=== PATIENT | female | born 1990 | race Caucasian/White ===

== ENCOUNTER 2016-12-10 17:09 | Emergency (ER) | payer OTHER ==
--- NOTE | 2016-12-10 17:56 | DIAGNOSTIC IMAGING REPORT ---
PROCEDURE: XR WRIST MIN 3 VIEWS - LEFT INDICATION: TRAUMA/INJURY TECHNIQUE: Five views of the left wrist. COMPARISON: None. FINDINGS: Normal mineralization. No fractures. Normal osseous alignment. No suspicious soft-tissue calcification or radiodense foreign bodies. IMPRESSION: 1. Intact left wrist.
--- NOTE | 2016-12-10 18:04 | ED ORDER SUMMARY ---
..... Patient: CECILIA GUILLERMO OrderSheet [facility] VisitID: [id number] [address] [place] [address] 26y, F Registration Date/Time: 12/10/2016 ORDER SHEET Weight: 544.3 kg (stated) Allergies: No Known Drug Allergy GENERAL ORDERS: Wrist 3 or 4V Left Urgent (17:21 12/10/2016 DDean R.N. per protocol) (Ack 17:23 PWeiler ER Tech1) (17:51 DDean R.N.) POC - Urine hCG (17:23 12/10/2016 DDean R.N. per protocol) (17:32 DDean R.N.) Splint (UE) (Left) (WRIST VELCRO) (17:49 12/10/2016 Rajendra P.A.-C) (17:59 Ani) MEDICATION ORDERS: IV FLUIDS: ORDER SHEET NOTES: [Electronically signed by Odette Brian R.N. (18:14 12/10/2016)] [Electronically signed by Ekta Weller P.AKris-C (18:35 12/10/2016)] [Electronically locked/signed by Odette Brian R.N. (18:14 12/10/2016)]
--- NOTE | 2016-12-10 18:04 | ED ORDER SUMMARY ---
..... Patient: CECILIA GUILLERMO OrderSheet [facility] VisitID: [id number] [address] [place] [address] 26y, F Registration Date/Time: 12/10/2016 ORDER SHEET Weight: 544.3 kg (stated) Allergies: No Known Drug Allergy GENERAL ORDERS: Wrist 3 or 4V Left Urgent (17:21 12/10/2016 DDean R.N. per protocol) (Ack 17:23 PWeiler ER Tech1) (17:51 DDean R.N.) POC - Urine hCG (17:23 12/10/2016 DDean R.N. per protocol) (17:32 DDean R.N.) Splint (UE) (Left) (WRIST VELCRO) (17:49 12/10/2016 Rajendra P.A.-C) (17:59 Ani) MEDICATION ORDERS: IV FLUIDS: ORDER SHEET NOTES: [Electronically signed by Odette Brian R.N. (18:14 12/10/2016)] [Electronically signed by Ekta Weller P.AKris-C (18:35 12/10/2016)] [Electronically locked/signed by Odette Brian R.N. (18:14 12/10/2016)]
--- NOTE | 2016-12-10 18:04 | ED NURSING NOTES ---
Clinical Report - Nurses [facility] [address] [place] [address] 12/10/2016 17:12 Patient: CECILIA GUILLERMO TRIAGE Triage time 1725. Acuity: LEVEL 4. Chief Complaint: INJURY TO LEFT WRIST. --17:25 Odette Brian R.N. 17:21 12/10/16. BP: 126/68. HR: 92. RR: 18. O2 saturation: 100%. Temp: 98.6 F. Pain level now: 03/04. --17:25 Odette Brian R.N. Weight: 544.3 kg stated. --17:23 Odette Brian R.N.. Height/Length: 65 inches Per Patient. BMI: 199.9. --18:13 Odette Brian R.N. Medications None. --18:13 Odette Brian R.N. Allergies No Known Drug Allergy. --18:13 Odette Brian R.N. History Arrived by private vehicle. Historian: patient. Accompanied by spouse. No primary care physician. This occurred (1400). Mechanism of injury: a blow (hit on edge of counter at work c/o wrist pain at base of thumb). PAST MEDICAL HX: Tetanus status: up-to-date. Last normal menstrual period- 2 weeks. SURGERY HX: No history of previous surgery. SOCIAL HX: Light tobacco smoker (cigarette)- less than 1/2 a pack per day. No alcohol use or drug use. --17:25 Odette Brian R.N. PROBLEMS: Pharyngitis. Torticollis. Anxiety Reaction. Sinusitis. Bronchitis. Asthma. --17:24 Odette Brian R.N. ADDITIONAL SURGERIES: no known surgeries. Interventions ID band on patient. To treatment room. --17:25 Odette Brian R.N. PHYSICAL ASSESSMENT 17:25. Ambulatory to room. GENERAL / NEURO / PSYCH: Oriented X 4. Alert. Appears in no acute distress. EXTREMITIES: Limited ROM present. Capillary refill is less than 2 seconds in the extremities. Extremity pulses are within normal limits. Neuro-vascular status intact to the extremity. Left wrist: tenderness and swelling. No limitation in ROM. SKIN: Skin is warm and dry. --17:32 Odette Brian R.N. NURSING PROGRESS NOTES 17:25. Cold pack applied. Reassurance given. Patient identifiers checked. Call light placed in reach. Side rails up. Bed placed in lowest position. Patient ready for evaluation- chart flagged. --17:29 Odette Brian R.N. 17:30. Patient ID band checked for patient name and birthdate. Clean catch urine collected with return of yellow-colored clear urine. (POC preg- Neg ERPA notified). --17:31 Odette Brian R.N. 17:31 12/10/16. ( Port x-ray here to do wrist films). --17:31 Odette Brian R.N. 17:59 12/10/16. Velcro upper extremity splint applied to left wrist by tech. Distal pulses intact, sensation intact and motor within normal limits. --18:00 Tres [place]idan. DISPOSITION / DISCHARGE 18:10. Condition at departure: stable. No learning barriers present. Discharge instructions provided and reviewed with the patient and spouse. Reviewed medication(s) (tylenol, motrin). Treatments reviewed (ice, elevate , splint). Patient and spouse verbalized understanding. Written instructions provided in Maltese. The patient was discharged home and accompanied by spouse. She left the Emergency Department ambulatory and via private vehicle. Spouse driving. --18:12 Odette Brian R.N. 18:10 12/10/16. BP: deferred. HR: deferred. RR: deferred. O2 saturation: deferred. Temp: deferred. --18:12 Odette Brian R.N. Locked/Released at 12/10/2016 18:14 by Odette Brian R.N.
--- NOTE | 2016-12-10 18:04 | ED CLINICAL REPORT ---
Clinical Report - Physicians/Mid Levels [facility] [address] [place] [address] 12/10/2016 17:12 [id number] Time Seen: 17:38 Dec 10 2016. Arrived- By private vehicle. Historian- patient. HISTORY OF PRESENT ILLNESS Chief Complaint: hand vs cabinet. Location of injuries- ([place] wrist). The injury occurred just prior to arrival. Occurred at work. The patient complains of mild pain. No blow to the head or neck pain. (Blow to wrist at work from a hard object/ stand. No prior injury. RHD.). REVIEW OF SYSTEMS No dizziness or hearing loss. All systems otherwise negative, except as recorded above. SOCIAL HISTORY Smoker- current status unknown. No alcohol use. ADDITIONAL NOTES The nursing notes have been reviewed. PHYSICAL EXAM Vital Signs: 12/10/2016 17:21 BP: 126/68. HR: 92. RR: 18. O2 saturation: 100%. Temp: 98.6 F. Pain level now: 7/10. Appearance: Alert. No acute distress. No backboard or C-collar. Head: No swelling of head. ENT: No dental injury. Neck: Painless ROM. Non-tender. No vertebral tenderness. Posterior neck: No tenderness. CVS: Heart sounds normal. Pulses normal. Respiratory: Breath sounds normal. Chest nontender. No chest wall injury. Abdomen: No visible injury. Soft. No rebound tenderness. Extremities: Normal inspection. Left elbow. No tenderness or laceration. Left forearm. No tenderness or swelling. Left wrist: mild tenderness. (pt distal radial aspect of metacarpals, full rom at thumb). Neuro: [place] Coma Scale: 15- eyes open spontaneously (4); best verbal response- oriented x 3 (5); best motor response- obeys commands (6). Oriented X 3. No motor deficit. LABS, X-RAYS, AND EKG Lt Wrist X-ray: (IMPRESSION: 1. Intact left wrist. Electronically Final signed by:Saranya Henry MD 12/10/2016 5:56:50 PM). PROGRESS AND PROCEDURES PROCEDURES (Leftwrist Velcro splint.). Course of Care: full distal range of motion. Good distal sensation. No signs of infectious process. No laceration. Patient very stable. No snuffbox tenderness. Patient did not fall on outstretched wrist, hand. Patient is stable. Patient/family counseled. Disposition: Discharged. CLINICAL IMPRESSION Contusion to the left wrist. INSTRUCTIONS Apply ice. Elevate affected areas above chest level. Return to work (12/11 Light duty, limited lifting < 5 lbs with LEFT HAND x 5 days). (IF pain persists > 10 days follow up with PRIMARY CARE DR). OTC Medications: Take OTC medications according to label instructions. Available over the counter. Acetaminophen (available over the counter): take according to label instructions. Motrin (available over the counter): take according to label instructions. Follow-up: Follow up with your doctor in ten days if not well. Understanding of the discharge instructions verbalized by patient. (Electronically signed by Ekta Weller P.A.-C 12/10/2016 18:35)
--- NOTE | 2016-12-10 18:04 | ED CLINICAL REPORT ---
Clinical Report - Physicians/Mid Levels [facility] [address] [place] [address] 12/10/2016 17:12 [id number] Time Seen: 17:38 Dec 10 2016. Arrived- By private vehicle. Historian- patient. HISTORY OF PRESENT ILLNESS Chief Complaint: hand vs cabinet. Location of injuries- ([place]efet wrist). The injury occurred just prior to arrival. Occurred at work. The patient complains of mild pain. No blow to the head or neck pain. (Blow to wrist at work from a hard object/ stand. No prior injury. RHD.). REVIEW OF SYSTEMS No dizziness or hearing loss. All systems otherwise negative, except as recorded above. SOCIAL HISTORY Smoker- current status unknown. No alcohol use. ADDITIONAL NOTES The nursing notes have been reviewed. PHYSICAL EXAM Vital Signs: 12/10/2016 17:21 BP: 126/68. HR: 92. RR: 18. O2 saturation: 100%. Temp: 98.6 F. Pain level now: 7/10. Appearance: Alert. No acute distress. No backboard or C-collar. Head: No swelling of head. ENT: No dental injury. Neck: Painless ROM. Non-tender. No vertebral tenderness. Posterior neck: No tenderness. CVS: Heart sounds normal. Pulses normal. Respiratory: Breath sounds normal. Chest nontender. No chest wall injury. Abdomen: No visible injury. Soft. No rebound tenderness. Extremities: Normal inspection. Left elbow. No tenderness or laceration. Left forearm. No tenderness or swelling. Left wrist: mild tenderness. (pt distal radial aspect of metacarpals, full rom at thumb). Neuro: [place] Coma Scale: 15- eyes open spontaneously (4); best verbal response- oriented x 3 (5); best motor response- obeys commands (6). Oriented X 3. No motor deficit. LABS, X-RAYS, AND EKG Lt Wrist X-ray: (IMPRESSION: 1. Intact left wrist. Electronically Final signed by:Saranya Henry MD 12/10/2016 5:56:50 PM). PROGRESS AND PROCEDURES PROCEDURES (Leftwrist Velcro splint.). Course of Care: full distal range of motion. Good distal sensation. No signs of infectious process. No laceration. Patient very stable. No snuffbox tenderness. Patient did not fall on outstretched wrist, hand. Patient is stable. Patient/family counseled. Disposition: Discharged. CLINICAL IMPRESSION Contusion to the left wrist. INSTRUCTIONS Apply ice. Elevate affected areas above chest level. Return to work (12/11 Light duty, limited lifting < 5 lbs with LEFT HAND x 5 days). (IF pain persists > 10 days follow up with PRIMARY CARE DR). OTC Medications: Take OTC medications according to label instructions. Available over the counter. Acetaminophen (available over the counter): take according to label instructions. Motrin (available over the counter): take according to label instructions. Follow-up: Follow up with your doctor in ten days if not well. Understanding of the discharge instructions verbalized by patient. (Electronically signed by Ekta Weller P.A.-C 12/10/2016 18:35)
--- NOTE | 2016-12-10 18:35 | ED MAR SUMMARY ---
..... Medication Administration Record [facility] [address] [place], [place] [id number] Patient: CECILIA GUILLERMO Visit ID: [id number] 26y, F Weight: 544.3 kg Height/Length: 65 in BMI: 199.9 ALLERGIES: No Known Drug Allergy
--- NOTE | 2016-12-10 18:35 | ED MAR SUMMARY ---
..... Medication Administration Record [facility] [address] [place], [place] [id number] Patient: CECILIA GUILLERMO Visit ID: [id number] 26y, F Weight: 544.3 kg Height/Length: 65 in BMI: 199.9 ALLERGIES: No Known Drug Allergy
--- NOTE | 2016-12-10 18:35 | ED MED RECONCILIATION SUMMARY ---
Patient: CECILIA GUILLERMO Medication Reconciliation Report [facility] VisitID: [id number] [place] [address] 26y, F Registration Date/Time: 12/10/2016 Weight: 544.3 kg Height/Length: 65 in. BMI: 199.9 ALLERGIES: No Known Drug Allergy The patient's Home Medications are listed below: NONE. The source(s) of the original Home Medication information: Not obtained. The following Medications were given to the patient in the Emergency Department: None. The following Medications were prescribed to the patient: Take OTC medications according to label instructions. Available over the counter. -- Ekta Weller, P.A.-C Acetaminophen (available over the counter): take according to label instructions. -- Ekta Weller, P.A.-C Motrin (available over the counter): take according to label instructions. -- Ekta Weller, P.A.-C
--- NOTE | 2016-12-10 18:35 | ED MED RECONCILIATION SUMMARY ---
Patient: CECILIA GUILLERMO Medication Reconciliation Report [facility] VisitID: [id number] [place] [address] 26y, F Registration Date/Time: 12/10/2016 Weight: 544.3 kg Height/Length: 65 in. BMI: 199.9 ALLERGIES: No Known Drug Allergy The patient's Home Medications are listed below: NONE. The source(s) of the original Home Medication information: Not obtained. The following Medications were given to the patient in the Emergency Department: None. The following Medications were prescribed to the patient: Take OTC medications according to label instructions. Available over the counter. -- Ekta Weller, P.A.-C Acetaminophen (available over the counter): take according to label instructions. -- Ekta Weller, P.A.-C Motrin (available over the counter): take according to label instructions. -- Ekta Weller, P.A.-C
--- NOTE | 2016-12-10 18:35 | ED DISCHARGE INSTRUCTIONS ---
Patient: CECILIA GUILLERMO General Instructions [facility] VisitID: [id number] [place] [address] 26y, F Registration Date/Time: 12/10/2016 Contusion to the left wrist. INSTRUCTIONS Apply ice. Elevate affected areas above chest level. Return to work (12/11 Light duty, limited lifting < 5 lbs with LEFT HAND x 5 days). (IF pain persists > 10 days follow up with PRIMARY CARE DR). OTC Medications: Take OTC medications according to label instructions. Available over the counter. Acetaminophen (available over the counter): take according to label instructions. Motrin (available over the counter): take according to label instructions. Follow-up: Follow up with your doctor in ten days if not well. Understanding of the discharge instructions verbalized by patient. ADDITIONAL INFORMATION Contusion: Hand You have a CONTUSION of your hand. This causes local pain, swelling and sometimes bruising. There are no broken bones. This injury takes from a few days to a few weeks to heal. Home Care: 1) Keep your arm elevated to reduce pain and swelling. This is very important during the first 48 hours. 2) Apply an ice pack (ice cubes in a plastic bag, wrapped in a towel) over the injured area for 20 minutes every 1-2 hours the first day. You should continue with ice packs 3-4 times a day for the next two days. Continue the use of ice packs for relief of pain and swelling as needed. 3) You may use acetaminophen (Tylenol) or ibuprofen (Motrin, Advil) to control pain, unless another pain medicine was prescribed. [ NOTE : If you have chronic liver or kidney disease or ever had a stomach ulcer or GI bleeding, talk with your doctor before using these medicines.] Follow Up with your doctor or this facility if you are not starting to improve within the next THREE days. [NOTE: If X-rays were taken, they will be reviewed by a radiologist. You will be notified of any new findings that may affect your care.] Get Prompt Medical Attention if any of the following occur: -- Pain or swelling increases -- Redness, warmth or drainage -- Hand or fingers becomes cold, blue, numb or tingly You have been given the following additional information: Contusion, Hand Return to work (12/11 Light duty, limited lifting < 5 lbs with LEFT HAND x 5 days). (Electronically signed by Ekta Weller P.A.-C 12/10/2016 18:35)
== END 2016-12-10 18:10 | disposition home or self-care (01) ==
LOC: ED SRH 17:09
DX: S60.212A Contusion of left wrist, initial encounter (principal); W22.09XA Striking against other stationary object, initial encounter; Y93.9 Activity, unspecified; Y92.9 Unspecified place or not applicable; Y99.0 Civilian activity done for income or pay; F17.210 Nicotine dependence, cigarettes, uncomplicated; J45.909 Unspecified asthma, uncomplicated

== ENCOUNTER 2016-12-12 17:27 | Emergency (ER) | payer OTHER ==
--- NOTE | 2016-12-12 17:38 | ED NURSING NOTES ---
Clinical Report - Nurses [facility] [address] [place] [address] 12/12/2016 17:28 Patient: CECILIA GUILLERMO TRIAGE Triage time 17:32. Acuity: LEVEL 5. Chief Complaint: Location of symptoms- left hand. 17:37 12/12/16. 17:37 12/12/16. Alert. No acute distress. ( Pt states she has left hand pain. Pt states she has had numbness/tingling in her left hand after her injury two days ago.). KIRSTEN COMA SCORE: [place] Coma Scale: 15- eyes open spontaneously (4); best verbal response- oriented x 4 (5); best motor response- obeys commands (6). --17:37 Davian Jefferson R.N. 17:32 12/12/16. BP: 120/73. HR: 77. RR: 15. O2 saturation: 100% on room air. Temp: 98.7 F (oral). Pain level now: 02/02. --17:37 Davian Jefferson R.N. Weight: 71.2 kg stated. Height/Length: 67 inches Per Patient. BMI: 24.6. --17:37 Davian Jefferson R.N. Medications None. --17:38 Davian Jefferson R.N. Medication/allergy information source: the patient. --17:37 Davian Jefferson R.N. Allergies No Known Drug Allergy. --17:38 Davian Jefferson R.N. History Arrived by private vehicle. Historian: patient. Accompanied by family. Primary physician (DOCTOR, PT STATES NO). 17:37 12/12/16. Injury occurred. It is described as radiating to the left upper extremity, forearm and hand. 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 PAST MEDICAL HX: Tetanus status: up-to-date. Immunizations: up-to-date. SOCIAL HX: Never smoker. FALL RISK ASSESSMENT: Fall risk assessment completed. No fall risk identified. NUTRITIONAL RISK ASSESSMENT: The nutritional risk assessment revealed no deficiencies. FUNCTIONAL ASSESSMENT: Functional assessment: no impairments noted. LEARNING NEEDS ASSESSMENT: The learning needs assessment revealed no barriers. SKIN INTEGRITY ASSESSMENT: Skin integrity risk assessment completed. No skin integrity risk identified. --17:37 Davian Jefferson R.N. PAST MEDICAL HX: Last normal menstrual period- 2 weeks ago. SOCIAL HX: Current every day light tobacco smoker- less than 1/2 a pack per day. No alcohol use or drug use. FALL RISK ASSESSMENT: Fall risk assessment completed. No fall risk identified. NUTRITIONAL RISK ASSESSMENT: The nutritional risk assessment revealed no deficiencies. FUNCTIONAL ASSESSMENT: Functional assessment: no impairments noted. LEARNING NEEDS ASSESSMENT: The learning needs assessment revealed no barriers. SKIN INTEGRITY ASSESSMENT: Skin integrity risk assessment completed. No skin integrity risk identified. --17:38 Davian Jefferson R.N. PROBLEMS: Pharyngitis. Viral Disease. Torticollis. Contusion. Anxiety Reaction. Sinusitis. Bronchitis. Upper Extremity Fracture. Tetanus Status. Immunizations. LNMP - Last Normal Menstrual Period. Fall. Asthma. --17:38 Davian Jefferson R.N. ADDITIONAL SURGERIES: no known surgeries. Assessment 17:37 12/12/16. --17:37 Davian Jefferson R.N. Interventions 17:37 12/12/16. 17:37 12/12/16. ID and allergy band on patient. To treatment room. --17:37 Davian Jefferson R.N. PHYSICAL ASSESSMENT 17:38 12/12/16. GENERAL / NEURO / PSYCH: Oriented X 4. Alert. Appears in no acute distress. EXTREMITIES: Extremities exhibit normal ROM. Neuro-vascular status intact to the extremity. No upper extremity edema. Skin is non-tender on the extremities. Left wrist: tenderness. Left hand: tenderness. SKIN: Skin is warm and dry. --17:38 Davian Jefferson R.N. NURSING PROGRESS NOTES 17:38 12/12/16. The plan of care for this patient has been created. Extremity elevated. Neuro-vascular extremity check. Reassurance given. Two patient identifiers checked. Call light placed in reach. Side rails up x 2. Bed placed in lowest position. Brakes of bed on. --17:38 Davian Jefferson R.N. 17:38 12/12/16. Patient ready for evaluation- chart flagged and notification provided. --17:39 Davian Jefferson R.N. DISPOSITION / DISCHARGE 17:43 12/12/16. The goals identified in the patient's plan of care were met. No learning barriers present. Discharge instructions provided and reviewed with the patient. Reviewed warnings. Reviewed medication(s). Treatments reviewed. Reviewed referral to an orthopedic surgeon. Patient verbalized understanding. Written instructions provided in Faroese. The patient was discharged by the physician assistant research scientist. She was discharged home and accompanied by family. She left the Emergency Department ambulatory and via private vehicle. Family member driving. FALL RISK ASSESSMENT: Fall risk assessment completed. No fall risk identified. --17:43 Davian Jefferson R.N. 17:41 12/12/16. BP: unable to obtain. HR: unable to obtain. RR: unable to obtain. O2 saturation: unable to obtain. Temp: unable to obtain. Additional comments: Refused vitals on DC. --17:43 Davian Jefferson R.N. 17:43 12/12/16. Departure time: 17:43. --17:43 Davian Jefferson R.N. Locked/Released at 12/12/2016 17:53 by Davian Jefferson R.N.
--- NOTE | 2016-12-12 17:38 | ED NURSING NOTES ---
Clinical Report - Nurses [facility] [address] [place] [address] 12/12/2016 17:28 Patient: CECILIA GUILLERMO TRIAGE Triage time 17:32. Acuity: LEVEL 5. Chief Complaint: Location of symptoms- left hand. 17:37 12/12/16. 17:37 12/12/16. Alert. No acute distress. ( Pt states she has left hand pain. Pt states she has had numbness/tingling in her left hand after her injury two days ago.). KIRSTEN COMA SCORE: [place] Coma Scale: 15- eyes open spontaneously (4); best verbal response- oriented x 4 (5); best motor response- obeys commands (6). --17:37 Davian Jefferson R.N. 17:32 12/12/16. BP: 120/73. HR: 77. RR: 15. O2 saturation: 100% on room air. Temp: 98.7 F (oral). Pain level now: 02/02. --17:37 Davian Jefferson R.N. Weight: 71.2 kg stated. Height/Length: 67 inches Per Patient. BMI: 24.6. --17:37 Davian Jefferson R.N. Medications None. --17:38 Davian Jefferson R.N. Medication/allergy information source: the patient. --17:37 Davian Jefferson R.N. Allergies No Known Drug Allergy. --17:38 Davian Jefferson R.N. History Arrived by private vehicle. Historian: patient. Accompanied by family. Primary physician (DOCTOR, PT STATES NO). 17:37 12/12/16. Injury occurred. It is described as radiating to the left upper extremity, forearm and hand. 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 PAST MEDICAL HX: Tetanus status: up-to-date. Immunizations: up-to-date. SOCIAL HX: Never smoker. FALL RISK ASSESSMENT: Fall risk assessment completed. No fall risk identified. NUTRITIONAL RISK ASSESSMENT: The nutritional risk assessment revealed no deficiencies. FUNCTIONAL ASSESSMENT: Functional assessment: no impairments noted. LEARNING NEEDS ASSESSMENT: The learning needs assessment revealed no barriers. SKIN INTEGRITY ASSESSMENT: Skin integrity risk assessment completed. No skin integrity risk identified. --17:37 Davian Jefferson R.N. PAST MEDICAL HX: Last normal menstrual period- 2 weeks ago. SOCIAL HX: Current every day light tobacco smoker- less than 1/2 a pack per day. No alcohol use or drug use. FALL RISK ASSESSMENT: Fall risk assessment completed. No fall risk identified. NUTRITIONAL RISK ASSESSMENT: The nutritional risk assessment revealed no deficiencies. FUNCTIONAL ASSESSMENT: Functional assessment: no impairments noted. LEARNING NEEDS ASSESSMENT: The learning needs assessment revealed no barriers. SKIN INTEGRITY ASSESSMENT: Skin integrity risk assessment completed. No skin integrity risk identified. --17:38 Davian Jefferson R.N. PROBLEMS: Pharyngitis. Viral Disease. Torticollis. Contusion. Anxiety Reaction. Sinusitis. Bronchitis. Upper Extremity Fracture. Tetanus Status. Immunizations. LNMP - Last Normal Menstrual Period. Fall. Asthma. --17:38 Davian Jefferson R.N. ADDITIONAL SURGERIES: no known surgeries. Assessment 17:37 12/12/16. --17:37 Davian Jefferson R.N. Interventions 17:37 12/12/16. 17:37 12/12/16. ID and allergy band on patient. To treatment room. --17:37 Davian Jefferson R.N. PHYSICAL ASSESSMENT 17:38 12/12/16. GENERAL / NEURO / PSYCH: Oriented X 4. Alert. Appears in no acute distress. EXTREMITIES: Extremities exhibit normal ROM. Neuro-vascular status intact to the extremity. No upper extremity edema. Skin is non-tender on the extremities. Left wrist: tenderness. Left hand: tenderness. SKIN: Skin is warm and dry. --17:38 Davian Jefferson R.N. NURSING PROGRESS NOTES 17:38 12/12/16. The plan of care for this patient has been created. Extremity elevated. Neuro-vascular extremity check. Reassurance given. Two patient identifiers checked. Call light placed in reach. Side rails up x 2. Bed placed in lowest position. Brakes of bed on. --17:38 Davian Jefferson R.N. 17:38 12/12/16. Patient ready for evaluation- chart flagged and notification provided. --17:39 Davian Jefferson R.N. DISPOSITION / DISCHARGE 17:43 12/12/16. The goals identified in the patient's plan of care were met. No learning barriers present. Discharge instructions provided and reviewed with the patient. Reviewed warnings. Reviewed medication(s). Treatments reviewed. Reviewed referral to an orthopedic surgeon. Patient verbalized understanding. Written instructions provided in Kyrgyz. The patient was discharged by the physician state tested nursing assistant. She was discharged home and accompanied by family. She left the Emergency Department ambulatory and via private vehicle. Family member driving. FALL RISK ASSESSMENT: Fall risk assessment completed. No fall risk identified. --17:43 Davian Jefferson R.N. 17:41 12/12/16. BP: unable to obtain. HR: unable to obtain. RR: unable to obtain. O2 saturation: unable to obtain. Temp: unable to obtain. Additional comments: Refused vitals on DC. --17:43 Davian Jefferson R.N. 17:43 12/12/16. Departure time: 17:43. --17:43 Davian Jfeferson R.N. Locked/Released at 12/12/2016 17:53 by Davian Jefferson R.N.
--- NOTE | 2016-12-12 17:38 | ED CLINICAL REPORT ---
Clinical Report - Physicians/Mid Levels [facility] [address] [place] [address] 12/12/2016 17:28 [id number] Time Seen: 17:33 Dec 12 2016. Arrived- By private vehicle. HISTORY OF PRESENT ILLNESS Chief Complaint: Injury to left wrist. 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 The patient sustained a direct blow and crush injury. ( Reports paresthesias to hand/ thumb worse with movement/ repetitive movement especially.). REVIEW OF SYSTEMS No tingling or skin laceration. All systems otherwise negative, except as recorded above. PAST HISTORY The patient's dominant hand is the right. She has not had a prior injury to the same area. SOCIAL HISTORY Never smoker. No alcohol use or drug use. PHYSICAL EXAM Appearance: Alert. No acute distress. Head: Head atraumatic. CVS: Normal heart rate and rhythm. Heart sounds normal. Respiratory: No respiratory distress. Breath sounds normal. No chest wall injury or accessory muscle use. Abdomen: No visible injury. Soft. Extremities: No upper extremity soft tissue tenderness. Left forearm. No tenderness or swelling. Left wrist. (left wrist pain tenderness, at radial aspect ,). No tenderness, swelling, ecchymosis or puncture wound. Left hand. (good sensation, full rom.) No tenderness or laceration. Neuro, Vascular and Tendons: Vascular status intact. Capillary refill not prolonged. Motor intact. No functional tendon deficit. Neuro: Oriented X 3. No motor deficit. No sensory deficit. PROGRESS AND PROCEDURES Course of Care: No secondary signs of infection. NO lac. Mild resolving ecchymosis. Full rom. Stable. Paresthesias from crush injury from a table like object. History is likely of paresthesias due to nerve contusion rather than entrapment, as it was a direct trauma on dorsal surface. Pt urged to limit movement if she has paresthesias, and if sx persist f/u with hand surgeon. Patient is stable. Patient/family counseled. Disposition: Discharged. CLINICAL IMPRESSION Paresthesia (L WRIST). Contusion to the left wrist. (Hand/ WRIST). INSTRUCTIONS Elevate affected areas above chest level. Limit use of your hand (R. Hand (limit lifting < 3 lbs ) x 6 days). (Hand SURGEON: Dr. Parker Salvador as needed [address] [place] [address] [phone]). OTC Medications: Take OTC medications according to label instructions. Available over the counter. Motrin (available over the counter): take according to label instructions. [facility]up with: [facility], , [address] [facility] [address] (Electronically signed by Ekta Weller P.A.-C 12/12/2016 17:48)
--- NOTE | 2016-12-12 17:38 | ED CLINICAL REPORT ---
Clinical Report - Physicians/Mid Levels [facility] [address] [place] [address] 12/12/2016 17:28 [id number] Time Seen: 17:33 Dec 12 2016. Arrived- By private vehicle. HISTORY OF PRESENT ILLNESS Chief Complaint: Injury to left wrist. 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 The patient sustained a direct blow and crush injury. ( Reports paresthesias to hand/ thumb worse with movement/ repetitive movement especially.). REVIEW OF SYSTEMS No tingling or skin laceration. All systems otherwise negative, except as recorded above. PAST HISTORY The patient's dominant hand is the right. She has not had a prior injury to the same area. SOCIAL HISTORY Never smoker. No alcohol use or drug use. PHYSICAL EXAM Appearance: Alert. No acute distress. Head: Head atraumatic. CVS: Normal heart rate and rhythm. Heart sounds normal. Respiratory: No respiratory distress. Breath sounds normal. No chest wall injury or accessory muscle use. Abdomen: No visible injury. Soft. Extremities: No upper extremity soft tissue tenderness. Left forearm. No tenderness or swelling. Left wrist. (left wrist pain tenderness, at radial aspect ,). No tenderness, swelling, ecchymosis or puncture wound. Left hand. (good sensation, full rom.) No tenderness or laceration. Neuro, Vascular and Tendons: Vascular status intact. Capillary refill not prolonged. Motor intact. No functional tendon deficit. Neuro: Oriented X 3. No motor deficit. No sensory deficit. PROGRESS AND PROCEDURES Course of Care: No secondary signs of infection. NO lac. Mild resolving ecchymosis. Full rom. Stable. Paresthesias from crush injury from a table like object. History is likely of paresthesias due to nerve contusion rather than entrapment, as it was a direct trauma on dorsal surface. Pt urged to limit movement if she has paresthesias, and if sx persist f/u with hand surgeon. Patient is stable. Patient/family counseled. Disposition: Discharged. CLINICAL IMPRESSION Paresthesia (L WRIST). Contusion to the left wrist. (Hand/ WRIST). INSTRUCTIONS Elevate affected areas above chest level. Limit use of your hand (R. Hand (limit lifting < 3 lbs ) x 6 days). (Hand SURGEON: Dr. Parker Salvador as needed [address] [place] [address] [phone]). OTC Medications: Take OTC medications according to label instructions. Available over the counter. Motrin (available over the counter): take according to label instructions. [facility] with: [facility], [facility], , [address] [facility] [address] (Electronically signed by Ekta Weller P.A.-C 12/12/2016 17:48)
--- NOTE | 2016-12-12 17:53 | ED MED RECONCILIATION SUMMARY ---
Patient: CECILIA GUILLERMO Medication Reconciliation Report [facility] VisitID: [id number] [address] [place] [address] 26y, F Registration Date/Time: 12/12/2016 Weight: 71.2 kg Height/Length: 67 in. BMI: 24.6 ALLERGIES: No Known Drug Allergy The patient's Home Medications are listed below: NONE. The source(s) of the original Home Medication information: patient The following Medications were given to the patient in the Emergency Department: None. The following Medications were prescribed to the patient: Take OTC medications according to label instructions. Available over the counter. -- Ekta Weller PKameron Motrin (available over the counter): take according to label instructions. -- Ekta Weller P.A.-C
--- NOTE | 2016-12-12 17:53 | ED MAR SUMMARY ---
..... Medication Administration Record [facility] [address], [place] [id number] Patient: CECILIA GUILLERMO Visit ID: [id number] 26y, F Weight: 71.2 kg Height/Length: 67 in BMI: 24.6 ALLERGIES: No Known Drug Allergy
--- NOTE | 2016-12-12 17:53 | ED DISCHARGE INSTRUCTIONS ---
Patient: CECILIA GUILLERMO General Instructions [facility] VisitID: [id number] [address], [place], [place] [id number] 26y, F Registration Date/Time: 12/12/2016 Paresthesia (L WRIST). Contusion to the left wrist. (Hand/ WRIST). INSTRUCTIONS Elevate affected areas above chest level. Limit use of your hand (R. Hand (limit lifting < 3 lbs ) x 6 days). (Hand SURGEON: Dr. Parker Salvador as needed [address] , [place] [address] [phone]). OTC Medications: Take OTC medications according to label instructions. Available over the counter. Motrin (available over the counter): take according to label instructions. [facility] with: [facility], , [address], , [place], [address] ADDITIONAL INFORMATION Contusion: Hand You have a CONTUSION of your hand. This causes local pain, swelling and sometimes bruising. There are no broken bones. This injury takes from a few days to a few weeks to heal. Home Care: 1) Keep your arm elevated to reduce pain and swelling. This is very important during the first 48 hours. 2) Apply an ice pack (ice cubes in a plastic bag, wrapped in a towel) over the injured area for 20 minutes every 1-2 hours the first day. You should continue with ice packs 3-4 times a day for the next two days. Continue the use of ice packs for relief of pain and swelling as needed. 3) You may use acetaminophen (Tylenol) or ibuprofen (Motrin, Advil) to control pain, unless another pain medicine was prescribed. [ NOTE : If you have chronic liver or kidney disease or ever had a stomach ulcer or GI bleeding, talk with your doctor before using these medicines.] Follow Up with your doctor or this facility if you are not starting to improve within the next THREE days. [NOTE: If X-rays were taken, they will be reviewed by a radiologist. You will be notified of any new findings that may affect your care.] Get Prompt Medical Attention if any of the following occur: -- Pain or swelling increases -- Redness, warmth or drainage -- Hand or fingers becomes cold, blue, numb or tingly Paraesthesias Paraesthesia refers to a burning or prickling sensation that is sometimes felt in the hands, arms, legs or feet. It can also occur in other parts of the body. It can also feel like tingling or numbness, skin crawling or itching.The sensation is usually painless. Most people have experienced pins and needles. This feeling happens when legs have been crossed for too long and pressure is placed on a nerve. This is a temporary paraesthesia. It quickly goes away once the pressure is relieved. There are many possible causes for chronic paraesthesias. These include such disorders as stroke, herniated disk (pressing on a nerve), trapped nerve in the shoulder, elbow or wrist (such as carpal tunnel syndrome), vitamin deficiencies or even certain medicines. Laboratory tests are needed to make an accurate diagnosis. These tests may include blood tests, X-ray, CT (computerized tomography) scan or a muscle test (electromyography).Depending on the cause, treatment may include physical therapy. Home Care: Do not make any changes to your medicines without advice from your doctor. If vitamins have been prescribed, remember to take them daily at the recommended dose. Because of a decrease in feeling, a numb hand or foot may be more prone to injury. Take care to protect these areas from cuts, bumps, bruises, stafford or other injury. Keep your nails trimmed and wash your hands and feet often. Wear shoes that fit well to avoid pressure points, blisters and ulcers. Look at your hands and feet carefully (including the soles of your feet and between your toes) at least once a week and notify your doctor of any open wounds or signs of infection. Follow Up with your doctor or as advised by our staff. You may need further testing to determine the exact cause of your paraesthesia. [NOTE: If blood tests, X-ray, CT scan or electromyography were done, specialists will review them. You will be notified of any new findings that may affect your care.] Get Prompt Medical Attention if any of the following occur: Numbness or weakness of the face, one arm or one leg Slurred speech, confusion, trouble speaking, walking or seeing Severe headache, fainting spell, dizziness or seizure Chest, arm, neck or upper back pain Loss of bladder or bowel control Open wound with redness, swelling or pus You have been given the following additional information: Contusion, Hand Paraesthesias Limit use of your hand (R. Hand (limit lifting < 3 lbs ) x 6 days). (Electronically signed by Ekta Weller P.A.-C 12/12/2016 17:48)
--- NOTE | 2016-12-12 17:53 | ED MED RECONCILIATION SUMMARY ---
Patient: CECILIA GUILLERMO Medication Reconciliation Report [facility] VisitID: [id number] [address] [place] [address] 26y, F Registration Date/Time: 12/12/2016 Weight: 71.2 kg Height/Length: 67 in. BMI: 24.6 ALLERGIES: No Known Drug Allergy The patient's Home Medications are listed below: NONE. The source(s) of the original Home Medication information: patient The following Medications were given to the patient in the Emergency Department: None. The following Medications were prescribed to the patient: Take OTC medications according to label instructions. Available over the counter. -- Ekta Weller PKameron Motrin (available over the counter): take according to label instructions. -- Ekta Weller P.A.-C
--- NOTE | 2016-12-12 17:53 | ED MAR SUMMARY ---
..... Medication Administration Record [facility] [address], [place] [id number] Patient: CECILIA GUILLERMO Visit ID: [id number] 26y, F Weight: 71.2 kg Height/Length: 67 in BMI: 24.6 ALLERGIES: No Known Drug Allergy
--- NOTE | 2016-12-12 17:53 | ED DISCHARGE INSTRUCTIONS ---
Patient: CECILIA GUILLERMO General Instructions [facility] VisitID: [id number] [address], [place], [place] [id number] 26y, F Registration Date/Time: 12/12/2016 Paresthesia (L WRIST). Contusion to the left wrist. (Hand/ WRIST). INSTRUCTIONS Elevate affected areas above chest level. Limit use of your hand (R. Hand (limit lifting < 3 lbs ) x 6 days). (Hand SURGEON: Dr. Parker Salvador as needed [address] , [place] [address] [phone]). OTC Medications: Take OTC medications according to label instructions. Available over the counter. Motrin (available over the counter): take according to label instructions. Follow-up with: [facility], , [address], , [place], [address] ADDITIONAL INFORMATION Contusion: Hand You have a CONTUSION of your hand. This causes local pain, swelling and sometimes bruising. There are no broken bones. This injury takes from a few days to a few weeks to heal. Home Care: 1) Keep your arm elevated to reduce pain and swelling. This is very important during the first 48 hours. 2) Apply an ice pack (ice cubes in a plastic bag, wrapped in a towel) over the injured area for 20 minutes every 1-2 hours the first day. You should continue with ice packs 3-4 times a day for the next two days. Continue the use of ice packs for relief of pain and swelling as needed. 3) You may use acetaminophen (Tylenol) or ibuprofen (Motrin, Advil) to control pain, unless another pain medicine was prescribed. [ NOTE : If you have chronic liver or kidney disease or ever had a stomach ulcer or GI bleeding, talk with your doctor before using these medicines.] Follow Up with your doctor or this facility if you are not starting to improve within the next THREE days. [NOTE: If X-rays were taken, they will be reviewed by a radiologist. You will be notified of any new findings that may affect your care.] Get Prompt Medical Attention if any of the following occur: -- Pain or swelling increases -- Redness, warmth or drainage -- Hand or fingers becomes cold, blue, numb or tingly Paraesthesias Paraesthesia refers to a burning or prickling sensation that is sometimes felt in the hands, arms, legs or feet. It can also occur in other parts of the body. It can also feel like tingling or numbness, skin crawling or itching.The sensation is usually painless. Most people have experienced pins and needles. This feeling happens when legs have been crossed for too long and pressure is placed on a nerve. This is a temporary paraesthesia. It quickly goes away once the pressure is relieved. There are many possible causes for chronic paraesthesias. These include such disorders as stroke, herniated disk (pressing on a nerve), trapped nerve in the shoulder, elbow or wrist (such as carpal tunnel syndrome), vitamin deficiencies or even certain medicines. Laboratory tests are needed to make an accurate diagnosis. These tests may include blood tests, X-ray, CT (computerized tomography) scan or a muscle test (electromyography).Depending on the cause, treatment may include physical therapy. Home Care: Do not make any changes to your medicines without advice from your doctor. If vitamins have been prescribed, remember to take them daily at the recommended dose. Because of a decrease in feeling, a numb hand or foot may be more prone to injury. Take care to protect these areas from cuts, bumps, bruises, stafford or other injury. Keep your nails trimmed and wash your hands and feet often. Wear shoes that fit well to avoid pressure points, blisters and ulcers. Look at your hands and feet carefully (including the soles of your feet and between your toes) at least once a week and notify your doctor of any open wounds or signs of infection. Follow Up with your doctor or as advised by our staff. You may need further testing to determine the exact cause of your paraesthesia. [NOTE: If blood tests, X-ray, CT scan or electromyography were done, specialists will review them. You will be notified of any new findings that may affect your care.] Get Prompt Medical Attention if any of the following occur: Numbness or weakness of the face, one arm or one leg Slurred speech, confusion, trouble speaking, walking or seeing Severe headache, fainting spell, dizziness or seizure Chest, arm, neck or upper back pain Loss of bladder or bowel control Open wound with redness, swelling or pus You have been given the following additional information: Contusion, Hand Paraesthesias Limit use of your hand (R. Hand (limit lifting < 3 lbs ) x 6 days). (Electronically signed by Ekta Weller P.A.-C 12/12/2016 17:48)
== END 2016-12-12 17:43 | disposition home or self-care (01) ==
LOC: ED SRH 17:27
DX: S60.212A Contusion of left wrist, initial encounter (principal); R20.9 Unspecified disturbances of skin sensation; X58.XXXA Exposure to other specified factors, initial encounter; Y93.9 Activity, unspecified; Y99.0 Civilian activity done for income or pay; Y92.69 Other specified industrial and construction area as the place of occurrence of the external cause